=== PATIENT | male | born 1940 | race Caucasian/White ===

== ENCOUNTER → 2016-10-13 | Outpatient (CLI) | payer MEDICARE, OTHER ==
[2014-12-01 10:13] VITALS: BP 122/50
[~2016-10-13] MED LIST: AMLO5TAB2 PO; ASPI81TA2 PO; ATEN25TA PO; CLOP75TA PO; CLOP75TA27 PO; DOXA4TAB3 PO; GLIM1TAB2 PO; HYDR12.53 PO; IOHEXOL 350 MG/ML 100 ML VIAL. IV ONE; LOSA1TAB18 PO; METF500T4 PO; OXYC1TAB9 PO; SIMV40TA3 PO
[2016-10-13 08:22] LABS: GFR 72.3
--- NOTE | 2016-10-13 09:50 | RAD ---
CTA of the abdomen, pelvis and both lower extremities, 10/13/2016: History: Peripheral vascular disease Multidetector CT imaging was performed following an IV bolus injection of iodinated contrast material. Multiplanar reconstructions were performed as well as 3-D volume rendered reconstructions of the aorta and its major branches. There is extensive calcific plaquing of the abdominal aorta and its branches. There is calcific plaquing and mild narrowing at the celiac artery origin. There is high-grade stenosis at the superior mesenteric artery origin. There is a single right renal artery with approximately 60% diameter narrowing at its origin. There are 2 left renal arteries. There is approximately 50% diameter narrowing at the origin of the larger of these 2 vessels. The other left renal artery is small with moderate narrowing proximally. There is occlusion of the [place] distal abdominal aorta. A patent aortic Y graft is present with its inferior limbs inserting into the the external iliac arteries. The external iliac and common femoral arteries are widely patent. There are surgical clips at both groin levels. There is extensive calcific plaquing in the distal right superficial femoral and popliteal arteries. The dense plaque partially obscures the underlying lumen at the right adductor canal level. There appears to be severe stenosis at this level as well as moderate stenosis at multiple levels in the right popliteal artery. There is three-vessel runoff in the right lower leg. There are mild scattered calcific plaques. The dorsalis pedis artery is patent. There are also scattered dense atherosclerotic plaques in the left distal superficial femoral and popliteal arteries partially obscuring the lumen. There appears to be moderate stenosis at several levels. No definite high-grade stenosis is seen. There is three-vessel runoff in the left lower leg. There is moderate calcific narrowing and stenosis involving the proximal left posterior tibial artery at several levels. A patent dorsalis pedis artery is evident. Incidental CT findings include the presence of mild pleural thickening posteriorly in the left lower chest, likely due to scarring. There is a small left renal cyst. There is moderate diffuse bladder wall thickening. This is likely related to chronic bladder outlet obstruction, although cystitis could also give this appearance. IMPRESSION: 1. Severe aortic atherosclerosis with occlusion of the [place] distal aorta. 2. A patent distal aorta to external iliac Y graft is present. 3. High-grade stenosis at the origin of the superior mesenteric artery. 4. Severe calcific plaquing involving in the distal superficial femoral and popliteal arteries. These plaques partially obscure the underlying lumen, however, there appears to be severe stenosis at the adductor canal level on the right and moderate stenosis on the left. 5. Three-vessel runoff in both lower legs with mild scattered atherosclerotic plaques.
== END | disposition home or self-care (01) ==
LOC: CT 07:37
DX: I70.213 Atherosclerosis of native arteries of extremities with intermittent claudication, bilateral legs (principal)
CPT/HCPCS: 36415; 75635; 82565; 84520; Q9967

== ENCOUNTER 2017-09-20 11:17 | Inpatient (IN) | payer MEDICARE, OTHER ==
[2017-09-20] MEDS: IV DEXTROSE 5 %-0.45 % NACL 1,000 ML IV (12:30)
[2017-09-20] MEDS: IV NORMAL SALINE 1000ML BAG 1,000 ML IV (12:30)
[2017-09-20 12:47] LABS: POC GLUCOSE 208 mg/dL (70-99)
[2017-09-20] MEDS: hydroCHLOROthiazide 12.5 MG CAPSULE PO (13:00)
[2017-09-20] MEDS ORDERED: AMPICILLIN SODIUM IV Push 2 GM VIAL. IVP (13:00)
[2017-09-20] MEDS: LOSARTAN POTASSIUM 50 MG TABLET. PO (13:00)
[2017-09-20] MEDS: ASPIRIN ENTERIC COATED 325 MG TABLET.DR. PO (13:00)
[2017-09-20] MEDS: CLOPIDOGREL BISULFATE 75 MG TABLET PO (13:00)
[2017-09-20] MEDS: amLODIPine BESYLATE 5 MG TABLET PO (13:00)
[2017-09-20] MEDS: ATENOLOL 25 MG TABLET. PO (13:00)
[2017-09-20 13:14] LABS: BASO % 1 % (0-3); EOS % 1 % (0-3); HEMATOCRIT 27.8 % (39.0-53.0); HEMOGLOBIN 9.7 g/dL (13.0-17.5); LYMPH # 0.9 x10^3/uL (1.0-4.8); LYMPH % 26 % (24-48); MEAN CORPUSCULAR HEMOGLOBIN 31 pg (25-35); MEAN CORPUSCULAR HGB CONC 35 g/dL (31-37); MEAN CORPUSCULAR VOLUME 88 fL (79-100); MONO # 0.7 x10^3/uL (0.0-1.1); MONO % 21 % (0-9); NEUT # 1.8 x10^3uL (1.8-7.7); NEUT % 52 % (31-73); PLATELET COUNT 189 x10^3/uL (140-400); RED BLOOD COUNT 3.17 x10^6/uL (4.30-5.70); RED CELL DISTRIBUTION WIDTH 13.4 % (11.5-14.5); WHITE BLOOD COUNT 3.5 x10^3/uL (4.0-11.0)
[2017-09-20 13:15] LABS: ADD MAN DIFF? YES
[2017-09-20 13:19] LABS: ANION GAP 7 (6-14); BLOOD UREA NITROGEN 18 mg/dL (8-26); BUN/CREATININE RATIO 20 (6-20); CALCIUM 8.3 mg/dL (8.5-10.1); CARBON DIOXIDE 27 mmol/L (21-32); CHLORIDE 98 mmol/L (98-107); CREATININE 0.9 mg/dL (0.7-1.3); GFR 81.4; GLUCOSE 209 mg/dL (70-99); POTASSIUM 3.1 mmol/L (3.5-5.1); SODIUM 132 mmol/L (136-145)
[2017-09-20 13:25] LABS: ALBUMIN/GLOBULIN RATIO 0.9 (1.0-1.7); ALK PHOS 102 U/L (46-116); ALT (SGPT) 32 U/L (16-63); AST (SGOT) 23 U/L (15-37); TOTAL BILIRUBIN 0.3 mg/dL (0.2-1.0); TOTAL PROTEIN 6.5 g/dL (6.4-8.2)
[2017-09-20 13:28] LABS: LACTIC ACID 2.2 mmol/L (0.4-2.0)
[2017-09-20] MEDS ORDERED: oxyCODONE/APAP 10/325 1 TAB TABLET PO ×2 (14:00)
[2017-09-20 14:13] LABS: % ATYL 1 % (0-0); % BANDS 14 % (0-9); % LYMPHS 19 % (24-48); % METAS 2 % (0-0); % MONOS 14 % (0-10); % SEGS 50 % (35-66); PLT ESTIMATE ADEQUATE (ADEQUATE); POLYCHROMASIA SLIGHT
[2017-09-20] MEDS ORDERED: VANCOMYCIN 1 GM in IV DEXTROSE 5% 250 ML IV (14:30)
[2017-09-20] MEDS: AMPICILLIN/SULBACTAM IV Push 3 GM VIAL. IVP ×2 (15:00→21:17)
[2017-09-20] MEDS: VANCOMYCIN 2 GM in IV 1/2 NORMAL SALINE 500 ML IV (16:07)
[2017-09-20] MEDS: PANTOPRAZOLE 40 MG TABLET.DR. PO (16:54)
[2017-09-20] MEDS: oxyCODONE/APAP 10/325 1 TAB TABLET PO ×2 (16:55→23:20)
[2017-09-20 16:57] LABS: POC GLUCOSE 150 mg/dL (70-99)
[2017-09-20] MEDS: VANCOMYCIN PER PHARMACY MC (17:55)
[2017-09-20] MEDS ORDERED: AMPICILLIN SODIUM 2 GM in IV NORMAL SALINE 100ML 100 ML IV (18:00)
[2017-09-20] MEDS ORDERED: AMPICILLIN/SULBACTAM 3 GM in IV NORMAL SALINE 100ML 100 ML IV (18:00)
[2017-09-20 21:02] LABS: POC GLUCOSE 215 mg/dL (70-99)
[2017-09-20] MEDS: FAMOTIDINE 20 MG TABLET. PO (21:16)
[2017-09-20] MEDS: ATORVASTATIN CALCIUM 20 MG TABLET PO (21:16)
[2017-09-20] MEDS: LACTOBACILLUS RHAMNOSUS GG 1 CAPSULE. PO (21:16)
[2017-09-21] MEDS: AMPICILLIN/SULBACTAM IV Push 3 GM VIAL. IVP ×4 (00:16→17:33)
[2017-09-21] MEDS: VANCOMYCIN 1 GM in IV DEXTROSE 5 %-0.2 % NACL 250 ML IV ×2 (04:01→17:00)
[2017-09-21] MEDS: oxyCODONE/APAP 10/325 1 TAB TABLET PO ×4 (04:01→21:42)
[2017-09-21] MEDS: IV DEXTROSE 5 %-0.45 % NACL 1,000 ML IV (05:48)
[2017-09-21 07:16] LABS: POC GLUCOSE 170 mg/dL (70-99)
[2017-09-21] MEDS: LOSARTAN POTASSIUM 50 MG TABLET. PO (08:05)
[2017-09-21] MEDS: LACTOBACILLUS RHAMNOSUS GG 1 CAPSULE. PO ×2 (08:05→21:42)
[2017-09-21] MEDS: hydroCHLOROthiazide 12.5 MG CAPSULE PO (08:05)
[2017-09-21] MEDS: PANTOPRAZOLE 40 MG TABLET.DR. PO ×2 (08:06→17:00)
[2017-09-21] MEDS: ASPIRIN ENTERIC COATED 325 MG TABLET.DR. PO (08:06)
[2017-09-21] MEDS: FAMOTIDINE 20 MG TABLET. PO ×2 (08:06→21:42)
[2017-09-21] MEDS: amLODIPine BESYLATE 5 MG TABLET PO (08:06)
[2017-09-21] MEDS: CLOPIDOGREL BISULFATE 75 MG TABLET PO (08:06)
[2017-09-21] MEDS: ATENOLOL 25 MG TABLET. PO (08:10)
[2017-09-21 09:26] LABS: ADD MAN DIFF? NO
[2017-09-21 09:30] LABS: BASO % 1 % (0-3); EOS # 0.2 x10^3/uL (0.0-0.7); EOS % 4 % (0-3); HEMOGLOBIN 9.8 g/dL (13.0-17.5); LYMPH # 1.1 x10^3/uL (1.0-4.8); LYMPH % 29 % (24-48); MEAN CORPUSCULAR HEMOGLOBIN 30 pg (25-35); MEAN CORPUSCULAR HGB CONC 34 g/dL (31-37); MEAN CORPUSCULAR VOLUME 89 fL (79-100); MONO # 0.6 x10^3/uL (0.0-1.1); MONO % 16 % (0-9); NEUT % 50 % (31-73); PLATELET COUNT 204 x10^3/uL (140-400); RED BLOOD COUNT 3.27 x10^6/uL (4.30-5.70); RED CELL DISTRIBUTION WIDTH 13.7 % (11.5-14.5); WHITE BLOOD COUNT 3.9 x10^3/uL (4.0-11.0)
[2017-09-21 09:36] LABS: POTASSIUM 4.3 mmol/L (3.5-5.1)
[2017-09-21 09:48] LABS: LACTIC ACID 2.4 mmol/L (0.4-2.0)
[2017-09-21] MEDS: POTASSIUM CL 30MEQ D5-0.45NACL 1,000 ML IV ×2 (10:47→21:46)
[2017-09-21] MEDS: ENOXAPARIN 40 MG/0.4 ML SYRINGE. SQ (10:47)
[2017-09-21 11:08] LABS: POC GLUCOSE 160 mg/dL (70-99)
[2017-09-21] MEDS: VANCOMYCIN PER PHARMACY MC (13:47)
[2017-09-21] MEDS ORDERED: VANCOMYCIN 1.25 GM in IV DEXTROSE 5 %-0.2 % NACL 250 ML IV (16:00)
[2017-09-21 16:31] LABS: POC GLUCOSE 191 mg/dL (70-99)
[2017-09-21 20:56] LABS: POC GLUCOSE 199 mg/dL (70-99)
[2017-09-21] MEDS: ATORVASTATIN CALCIUM 20 MG TABLET PO (21:42)
[2017-09-21] MEDS: TEMAZEPAM 15 MG CAPSULE PO (21:42)
[2017-09-22] MEDS: AMPICILLIN/SULBACTAM IV Push 3 GM VIAL. IVP ×4 (00:17→19:40)
[2017-09-22 03:15] LABS: VANC TR 12.2 mcg/mL (10.0-20.0)
[2017-09-22] MEDS: VANCOMYCIN 1 GM in IV DEXTROSE 5 %-0.2 % NACL 250 ML IV ×2 (04:43→16:43)
[2017-09-22] MEDS: VANCOMYCIN PER PHARMACY MC ×2 (05:27→14:24)
[2017-09-22] MEDS: PANTOPRAZOLE 40 MG TABLET.DR. PO ×2 (05:49→16:41)
[2017-09-22] MEDS: oxyCODONE/APAP 10/325 1 TAB TABLET PO ×3 (05:56→19:40)
[2017-09-22 07:36] LABS: POC GLUCOSE 142 mg/dL (70-99)
[2017-09-22] MEDS: CLOPIDOGREL BISULFATE 75 MG TABLET PO (08:42)
[2017-09-22] MEDS: ASPIRIN ENTERIC COATED 325 MG TABLET.DR. PO (08:42)
[2017-09-22] MEDS: ATENOLOL 25 MG TABLET. PO (08:42)
[2017-09-22] MEDS: LACTOBACILLUS RHAMNOSUS GG 1 CAPSULE. PO ×2 (08:42→22:14)
[2017-09-22] MEDS: amLODIPine BESYLATE 5 MG TABLET PO (08:43)
[2017-09-22] MEDS: FAMOTIDINE 20 MG TABLET. PO ×2 (08:43→22:13)
[2017-09-22] MEDS: hydroCHLOROthiazide 12.5 MG CAPSULE PO (08:43)
[2017-09-22] MEDS: LOSARTAN POTASSIUM 50 MG TABLET. PO (08:44)
[2017-09-22] MEDS: ENOXAPARIN 40 MG/0.4 ML SYRINGE. SQ (08:47)
[2017-09-22 11:36] LABS: POC GLUCOSE 178 mg/dL (70-99)
[2017-09-22] MEDS: POTASSIUM CL 30MEQ D5-0.45NACL 1,000 ML IV ×2 (11:40→22:15)
[2017-09-22 16:06] LABS: POC GLUCOSE 148 mg/dL (70-99)
[2017-09-22 21:16] LABS: POC GLUCOSE 178 mg/dL (70-99)
[2017-09-22] MEDS: TEMAZEPAM 15 MG CAPSULE PO (22:13)
[2017-09-22] MEDS: ATORVASTATIN CALCIUM 20 MG TABLET PO (22:14)
[2017-09-23] MEDS: AMPICILLIN/SULBACTAM IV Push 3 GM VIAL. IVP ×3 (00:23→12:54)
[2017-09-23] MEDS: VANCOMYCIN 1 GM in IV DEXTROSE 5 %-0.2 % NACL 250 ML IV ×2 (04:39→17:13)
[2017-09-23] MEDS: oxyCODONE/APAP 10/325 1 TAB TABLET PO ×3 (04:39→18:27)
[2017-09-23 05:32] LABS: ADD MAN DIFF? NO
[2017-09-23 05:43] LABS: BASO # 0.1 x10^3/uL (0.0-0.2); BASO % 1 % (0-3); EOS # 0.4 x10^3/uL (0.0-0.7); EOS % 8 % (0-3); HEMATOCRIT 28.5 % (39.0-53.0); HEMOGLOBIN 9.7 g/dL (13.0-17.5); LYMPH # 1.8 x10^3/uL (1.0-4.8); LYMPH % 33 % (24-48); MEAN CORPUSCULAR HEMOGLOBIN 30 pg (25-35); MEAN CORPUSCULAR HGB CONC 34 g/dL (31-37); MEAN CORPUSCULAR VOLUME 87 fL (79-100); MONO # 0.6 x10^3/uL (0.0-1.1); MONO % 11 % (0-9); NEUT # 2.6 x10^3uL (1.8-7.7); NEUT % 47 % (31-73); PLATELET COUNT 269 x10^3/uL (140-400); RED BLOOD COUNT 3.27 x10^6/uL (4.30-5.70); RED CELL DISTRIBUTION WIDTH 13.2 % (11.5-14.5); WHITE BLOOD COUNT 5.5 x10^3/uL (4.0-11.0)
[2017-09-23 06:02] LABS: ALBUMIN 2.8 g/dL (3.4-5.0); ALBUMIN/GLOBULIN RATIO 0.7 (1.0-1.7); ALK PHOS 90 U/L (46-116); ALT (SGPT) 35 U/L (16-63); ANION GAP 10 (6-14); AST (SGOT) 20 U/L (15-37); BLOOD UREA NITROGEN 8 mg/dL (8-26); BUN/CREATININE RATIO 10 (6-20); CALCIUM 8.6 mg/dL (8.5-10.1); CARBON DIOXIDE 28 mmol/L (21-32); CHLORIDE 104 mmol/L (98-107); CREATININE 0.8 mg/dL (0.7-1.3); GFR 93.3; GLUCOSE 135 mg/dL (70-99); POTASSIUM 3.5 mmol/L (3.5-5.1); SODIUM 142 mmol/L (136-145); TOTAL BILIRUBIN 0.4 mg/dL (0.2-1.0); TOTAL PROTEIN 6.7 g/dL (6.4-8.2)
[2017-09-23 07:47] LABS: POC GLUCOSE 135 mg/dL (70-99)
[2017-09-23] MEDS: LOSARTAN POTASSIUM 50 MG TABLET. PO (08:31)
[2017-09-23] MEDS: CLOPIDOGREL BISULFATE 75 MG TABLET PO (08:32)
[2017-09-23] MEDS: LACTOBACILLUS RHAMNOSUS GG 1 CAPSULE. PO ×2 (08:32→21:06)
[2017-09-23] MEDS: amLODIPine BESYLATE 5 MG TABLET PO (08:32)
[2017-09-23] MEDS: hydroCHLOROthiazide 12.5 MG CAPSULE PO (08:32)
[2017-09-23] MEDS: FAMOTIDINE 20 MG TABLET. PO ×2 (08:33→21:06)
[2017-09-23] MEDS: ASPIRIN ENTERIC COATED 325 MG TABLET.DR. PO (08:33)
[2017-09-23] MEDS: ATENOLOL 25 MG TABLET. PO (08:33)
[2017-09-23] MEDS: PANTOPRAZOLE 40 MG TABLET.DR. PO ×2 (08:33→17:15)
[2017-09-23] MEDS: ENOXAPARIN 40 MG/0.4 ML SYRINGE. SQ (08:41)
[2017-09-23 11:22] LABS: POC GLUCOSE 108 mg/dL (70-99)
[2017-09-23] MEDS: VANCOMYCIN PER PHARMACY MC (14:59)
[2017-09-23 16:30] LABS: POC GLUCOSE 171 mg/dL (70-99)
[2017-09-23] MEDS: POTASSIUM CL 30MEQ D5-0.45NACL 1,000 ML IV ×2 (17:14→23:27)
[2017-09-23] MEDS: AMPICILLIN/SULBACTAM 3 GM in IV NORMAL SALINE 100ML 100 ML IV ×2 (18:29→23:25)
[2017-09-23] MEDS: TEMAZEPAM 15 MG CAPSULE PO (21:06)
[2017-09-23] MEDS: ATORVASTATIN CALCIUM 20 MG TABLET PO (21:06)
[2017-09-23 21:33] LABS: POC GLUCOSE 113 mg/dL (70-99)
[2017-09-24] MEDS: VANCOMYCIN 1 GM in IV DEXTROSE 5 %-0.2 % NACL 250 ML IV (04:34)
[2017-09-24] MEDS: oxyCODONE/APAP 10/325 1 TAB TABLET PO ×2 (04:34→11:25)
[2017-09-24] MEDS: AMPICILLIN/SULBACTAM 3 GM in IV NORMAL SALINE 100ML 100 ML IV (06:00)
[2017-09-24 07:37] LABS: POC GLUCOSE 111 mg/dL (70-99)
[2017-09-24] MEDS: PANTOPRAZOLE 40 MG TABLET.DR. PO (08:36)
[2017-09-24] MEDS: LACTOBACILLUS RHAMNOSUS GG 1 CAPSULE. PO (08:36)
[2017-09-24] MEDS: hydroCHLOROthiazide 12.5 MG CAPSULE PO (08:37)
[2017-09-24] MEDS: ASPIRIN ENTERIC COATED 325 MG TABLET.DR. PO (08:37)
[2017-09-24] MEDS: LOSARTAN POTASSIUM 50 MG TABLET. PO (08:37)
[2017-09-24] MEDS: FAMOTIDINE 20 MG TABLET. PO (08:37)
[2017-09-24] MEDS: ATENOLOL 25 MG TABLET. PO (08:38)
[2017-09-24] MEDS: amLODIPine BESYLATE 5 MG TABLET PO (08:38)
[2017-09-24] MEDS: ENOXAPARIN 40 MG/0.4 ML SYRINGE. SQ (08:39)
[2017-09-24] MEDS: VANCOMYCIN PER PHARMACY MC (11:13)
[2017-09-24 11:15] LABS: POC GLUCOSE 83 mg/dL (70-99)
[2017-09-25] MEDS ORDERED: AMPICILLIN/SULBACTAM IV Push 3 GM VIAL. IVP
== END 2017-09-24 12:36 | disposition home or self-care (01) | DRG 872 ==
LOC: 4 NORTH 11:17
PROVIDERS: Family Medicine
DX: A41.9 Sepsis, unspecified organism (principal); I76 Septic arterial embolism; E11.51 Type 2 diabetes mellitus with diabetic peripheral angiopathy without gangrene; L02.214 Cutaneous abscess of groin; L03.032 Cellulitis of left toe; G89.29 Other chronic pain; I10 Essential (primary) hypertension; I25.10 Atherosclerotic heart disease of native coronary artery without angina pectoris; Z87.891 Personal history of nicotine dependence; Z95.1 Presence of aortocoronary bypass graft; S90.425A Blister (nonthermal), left lesser toe(s), initial encounter; X58.XXXA Exposure to other specified factors, initial encounter; Y93.89 Activity, other specified; Y92.89 Other specified places as the place of occurrence of the external cause; Y99.8 Other external cause status
CPT/HCPCS: 36415; 73660; 80053; 80202; 82962; 83605; 84132; 85007; 85025; 87040; 93306; J0295; J1650; J3370; J7030

== ENCOUNTER → 2017-09-28 | Day surgery (SDC) | payer MEDICARE, OTHER ==
[~2017-09-28] MED LIST changes: -AMLO5TAB2 PO; -ASPI81TA2 PO; -ATEN25TA PO; -CLOP75TA PO; -CLOP75TA27 PO; -DOXA4TAB3 PO; -GLIM1TAB2 PO; +GLYCOPYRROLATE 1 MG/5 ML VIAL.; -HYDR12.53 PO; -IOHEXOL 350 MG/ML 100 ML VIAL. IV ONE; +LIDOCAINE 1% PF 2 ML VIAL. ID; +LIDOCAINE 2% PF Vial for OR 5 ML VIAL.; +LIDOCAINE 4% KIT 4 ML SOLUTION. TP; -LOSA1TAB18 PO; -METF500T4 PO; +MORPHINE SULFATE 2 MG/ML DISP.SYRIN. IV; +NEOSTIGMINE METHYLSULFATE 5 MG/5 ML SYRINGE.; +ONDANSETRON PF 4 MG/2 ML VIAL. IV; -OXYC1TAB9 PO; +PROCHLORPERAZINE 10 MG/2 ML VIAL. IV; +PROPOFOL 20 ML IV; +ROCURONIUM 50 MG/5 ML VIAL.; +SEVOFLURANE 31 TO 60 MINUTES. IH; -SIMV40TA3 PO; +SUCCINYLCHOLINE 200 MG/10 ML VIAL.; +ePHEDrine PF IN SALINE 50 MG/5 ML DISP.SYRIN IV; +fentaNYL PF VIAL 100 MCG/2 ML VIAL; +fentaNYL PF VIAL 100 MCG/2 ML VIAL IV
[2017-09-28] MEDS: IV RINGERS,LACTATED 1000ML 1,000 ML IV (07:17)
[2017-09-28] MEDS: EPINEPHrine VIAL 30 MG/30 ML VIAL (08:04)
[2017-09-28 09:26] LABS: POC GLUCOSE 136 mg/dL (70-99)
[2017-10-01 05:51] LABS: POC GLUCOSE 104 mg/dL (70-99)
== END | disposition home or self-care (01) ==
LOC: SURG 06:32
DX: J38.3 Other diseases of vocal cords (principal); E11.9 Type 2 diabetes mellitus without complications; Z79.84 Long term (current) use of oral hypoglycemic drugs
CPT/HCPCS: 31541; 82962; A7015; J0171; J0330; J0690; J2704; J2710; J3010; J3490

== ENCOUNTER → 2017-11-01 | Day surgery (SDC) | payer MEDICARE, OTHER ==
[~2017-11-01] MED LIST changes: -GLYCOPYRROLATE 1 MG/5 ML VIAL.; +IV RINGERS,LACTATED 1000ML 1,000 ML IV; -LIDOCAINE 1% PF 2 ML VIAL. ID; -LIDOCAINE 2% PF Vial for OR 5 ML VIAL.; -LIDOCAINE 4% KIT 4 ML SOLUTION. TP; -MORPHINE SULFATE 2 MG/ML DISP.SYRIN. IV; -NEOSTIGMINE METHYLSULFATE 5 MG/5 ML SYRINGE.; -ONDANSETRON PF 4 MG/2 ML VIAL. IV; -PROCHLORPERAZINE 10 MG/2 ML VIAL. IV; -PROPOFOL 20 ML IV; -ROCURONIUM 50 MG/5 ML VIAL.; -SEVOFLURANE 31 TO 60 MINUTES. IH; -SUCCINYLCHOLINE 200 MG/10 ML VIAL.; -ePHEDrine PF IN SALINE 50 MG/5 ML DISP.SYRIN IV; -fentaNYL PF VIAL 100 MCG/2 ML VIAL; -fentaNYL PF VIAL 100 MCG/2 ML VIAL IV
== END | disposition home or self-care (01) ==
LOC: SURG 08:10
DX: K21.0 Gastro-esophageal reflux disease with esophagitis (principal); K25.3 Acute gastric ulcer without hemorrhage or perforation; K31.89 Other diseases of stomach and duodenum; K29.50 Unspecified chronic gastritis without bleeding; E11.9 Type 2 diabetes mellitus without complications; M19.90 Unspecified osteoarthritis, unspecified site; E78.00 Pure hypercholesterolemia, unspecified; Z85.828 Personal history of other malignant neoplasm of skin; Z82.49 Family history of ischemic heart disease and other diseases of the circulatory system; Z79.899 Other long term (current) drug therapy; Z98.890 Other specified postprocedural states; I25.10 Atherosclerotic heart disease of native coronary artery without angina pectoris; Z95.4 Presence of other heart-valve replacement; Z95.5 Presence of coronary angioplasty implant and graft; I10 Essential (primary) hypertension; J44.9 Chronic obstructive pulmonary disease, unspecified; N40.0 Benign prostatic hyperplasia without lower urinary tract symptoms
CPT/HCPCS: 43239; 88305; 88341; 88342; J2704

== ENCOUNTER → 2019-07-15 | Outpatient (CLI) | payer MEDICARE, OTHER ==
[2017-11-01 11:04] VITALS: BP 164/69
[~2019-07-15] MED LIST changes: +AMLO5TAB10 PO; +AMOX1TAB61 PO; +ASPI-630 PO; +ASPI325T11 PO; +ATEN25TA PO; +CLOP75TA PO; +CLOP75TA57 PO; +DOXA4TAB3 PO; +FURO40TA4 PO; +GLIM1TAB7 PO; +HYDR12.575 PO; -IV RINGERS,LACTATED 1000ML 1,000 ML IV; +LOSA1TAB25 PO; +METF10007 PO; +METF500T16 PO; +OXYC-411 PO; +PANT20TA2 PO; +POTA20TA4 PO; +RANI150C PO; +SIMV40TA18 PO
[2019-07-15 14:20] LABS: BASO % 1 % (0-3); EOS # 0.2 x10^3/uL (0.0-0.7); EOS % 4 % (0-3); HEMATOCRIT 34.3 % (39.0-53.0); HEMOGLOBIN 11.7 g/dL (13.0-17.5); LYMPH # 2.6 x10^3/uL (1.0-4.8); LYMPH % 44 % (24-48); MEAN CORPUSCULAR HEMOGLOBIN 30 pg (25-35); MEAN CORPUSCULAR HGB CONC 34 g/dL (31-37); MEAN CORPUSCULAR VOLUME 88 fL (79-100); MONO # 0.5 x10^3/uL (0.0-1.1); MONO % 9 % (0-9); NEUT # 2.5 x10^3/uL (1.8-7.7); NEUT % 42 % (31-73); PLATELET COUNT 230 x10^3/uL (140-400); RED CELL DISTRIBUTION WIDTH 12.7 % (11.5-14.5); WHITE BLOOD COUNT 5.8 x10^3/uL (4.0-11.0)
[2019-07-15 14:35] LABS: ALBUMIN 3.6 g/dL (3.4-5.0); CALCIUM 8.9 mg/dL (8.5-10.1); CREATININE 1.1 mg/dL (0.7-1.3); GFR 64.2; POTASSIUM 3.8 mmol/L (3.5-5.1); TOTAL BILIRUBIN 0.3 mg/dL (0.2-1.0); TOTAL PROTEIN 7.3 g/dL (6.4-8.2)
--- NOTE | 2019-07-15 14:54 | EKG ---
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
== END | disposition home or self-care (01) ==
LOC: SURGPAT 13:44
PROVIDERS: ATTEND Neurological Surgery
DX: Z01.818 Encounter for other preprocedural examination (principal); M48.062 Spinal stenosis, lumbar region with neurogenic claudication
CPT/HCPCS: 36415; 80053; 85025; 87641; 93005

== ENCOUNTER 2019-07-24 07:05 | Day surgery (SDC) | payer MEDICARE, OTHER ==
--- NOTE | 2019-07-23 14:28 | HP ---
ADMIT DATE: 07/24/2019 PREOPERATIVE HISTORY AND PHYSICAL DATE OF SURGERY: 07/24/2019. HISTORY OF PRESENT ILLNESS: The patient is a pleasant 79-year-old who has difficulty with low back pain. The pain radiates to both of his legs. He also notices problems with neck pain and pain in the left shoulder. His problem began about 1 year ago. He rates his pain as a 4-5/10. The mornings are worse for his neck pain. Walking or activity increases his lower back pain. He is taking Percocet. He has had epidural steroid injections for this without help. He has had previous surgery of lumbar spine and then I obtained a lumbar CT scan to evaluate him more fully. PAST MEDICAL HISTORY: Artificial heart valve, heart murmur, hypertension. PAST SURGICAL HISTORY: A lumbar surgery in 2007, right femoral artery in 2013, a vocal cord surgery in 2017. FAMILY HISTORY: None documented. SOCIAL HISTORY: Retired. Drinks coffee. ALLERGIES: No known drug allergies. CURRENT MEDICATIONS: Percocet, ranitidine, Flonase, furosemide, aspirin, doxazosin, atenolol, losartan, simvastatin, metformin, doxazosin, Plavix. REVIEW OF SYSTEMS: A 12-point review of systems was obtained and is noncontributory except that mentioned above. PHYSICAL EXAMINATION: NEUROSURGERY EXAMINATION: GENERAL APPEARANCE: Alert, pleasant, no acute distress. HEAD: Normocephalic and atraumatic. SKIN: Warm and dry. MUSCULOSKELETAL: Cervical and lumbar paraspinal muscle bulk is normal, restricted range of motion of the cervical and lumbar spine, cwyu-gr-eozcaism tenderness of the lower lumbar spine with palpation, normal range of motion of the lower extremities bilaterally and upper extremities bilaterally. EXTREMITIES: No clubbing, cyanosis or edema. NEUROLOGIC: Alert and oriented x 3, normal recent and remote memory. Strength 5/5 in bilateral lower extremities, sensory was intact to light touch in bilateral lower extremities. Reflexes are present and symmetric in lower extremities bilaterally, negative straight leg raising bilaterally, normal gait. IMAGING: I reviewed his lumbar MRI scan. He has had a laminectomy, which extends from L3-S1. There is significant lumbar stenosis at L2-L3. I reviewed a cervical MRI scan; there is cervical stenosis that is mild. ASSESSMENT/ PLAN: At this point, his primary problem is leg pain bilaterally with ambulation as well as back pain. I felt that a laminectomy at L2-L3, which is above the previous surgery, could benefit in relieving the stenosis. I explained that the surgery would most likely be helpful for his leg discomfort and for his back problems. He understands. He would like to go ahead with further surgery. I discussed the risks and technique and expected postoperative course. He understands. We will make the arrangements. NELIA CORNEJO MD DR: JANICE/blanca JOB#: [id number] / [id number] MIAN
[~2019-07-24 07:05] MED LIST changes: +BACITRACIN 50,000 UNIT in IV NORMAL SALINE 1000ML BAG 1,000 ML IRR ONE; +HYDROmorphone 2 MG/ML VIAL IV PRN; +IV RINGERS,LACTATED 1000ML 1,000 ML IV SCH; +MORPHINE SULFATE 2 MG/ML VIAL. IV PRN; +ONDANSETRON PF 4 MG/2 ML VIAL. IV PRN; +PROCHLORPERAZINE 10 MG/2 ML VIAL. IV PRN; +fentaNYL PF VIAL 100 MCG/2 ML VIAL IV PRN
[2019-07-24] MEDS ORDERED: MULT-245 PO (07:31)
[2019-07-24] MEDS ORDERED: INSULIN LISPRO 100 UNIT/ML 3ML VIAL for OP,RR ONLY. SQ PRN (07:45)
[2019-07-24] MEDS ORDERED: BUPIVACAINE-EPI 0.5%-1:200000 MPF 30 ML VIAL. ONE (07:47)
[2019-07-24] MEDS ORDERED: KETOROLAC 60 MG/2 ML VIAL. ONE (07:47)
[2019-07-24] MEDS ORDERED: THROMBIN TOPICAL 20,000 UNIT SPRAY.SYRN KIT TP ONE (07:47)
[2019-07-24] MEDS ORDERED: GELATIN SPONGE SIZE 100. ONE (07:47)
[2019-07-24] MEDS ORDERED: ROCURONIUM 50 MG/5 ML VIAL. ONE ×2 (07:58→08:23)
[2019-07-24] MEDS ORDERED: fentaNYL PF VIAL 100 MCG/2 ML VIAL ONE ×3 (07:58→13:56)
[2019-07-24] MEDS ORDERED: DEXAMETHASONE SOD PHOS 4 MG/ML VIAL ONE (07:58)
[2019-07-24] MEDS ORDERED: PROPOFOL 20 ML IV ONE ×2 (07:58→08:23)
[2019-07-24] MEDS ORDERED: ceFAZolin 2GM PREMIX 2 GM/50 ML BAG IV ONE (08:00)
[2019-07-24] MEDS ORDERED: ONDANSETRON PF 4 MG/2 ML VIAL. ONE ×2 (08:00→08:23)
[2019-07-24] MEDS ORDERED: PROPOFOL 50 ML IV ONE ×2 (08:23→11:31)
[2019-07-24] MEDS ORDERED: DEXAMETHASONE SOD PHOS 20 MG/5 ML VIAL. ONE (08:23)
[2019-07-24] MEDS ORDERED: REMIFENTANIL 2 MG VIAL. IV ONE (08:23)
[2019-07-24] MEDS ORDERED: LIDOCAINE 2% PF 5 ML VIAL. ONE (08:23)
[2019-07-24] MEDS ORDERED: ePHEDrine PF IN SALINE 50 MG/10 ML SYRINGE. IV ONE (10:45)
[2019-07-24] MEDS ORDERED: GLYCOPYRROLATE 1 MG/5 ML VIAL. ONE (10:46)
[2019-07-24] MEDS ORDERED: PHENYLEPHRINE 10 MG/ML VIAL. ONE (11:36)
[2019-07-24] MEDS ORDERED: NEOSTIGMINE METHYLSULFATE 5 MG/5 ML SYRINGE. ONE (12:07)
[2019-07-24] MEDS ORDERED: DESFLURANE > 120 MINUTES IH ONE (12:22)
[2019-07-24] MEDS ORDERED: DOCU-109 PO (12:25)
--- NOTE | 2019-07-24 12:32 | DISCH ---
DISCHARGE INSTRUCTIONS Condition on Discharge Condition on Discharge: Stable Activity After Discharge Activity Instructions for Disc: Activity as tolerated, Avoid exertion Other activity instructions: no driving for a week Bathing Instructions: Shower-keep dressing dry, No Tub Bath until see Lifting Instructions after Dis: No heavy lifting, No pulling or pushing, Do not lift >10 pounds Driving Instructions after Dis: Do not drive Weight Bearing Status after Di: As tolerated Diet after Discharge Diet after Discharge: Cardiac Diet Texture: Regular Liquid Texture: Thin Liquid Swallowing Supervision: None needed Wound Incision Care Wound/Incision Care: Ice to area for comfort Other wound/incision instructi: may remove dressing in 48 hours if dry then may shower, no soaking Contacting the DRDiane after DC Call your doctor for: Concerns you may have Follow-Up Follow up with: Dr. Cornejo's nurse in 2 weeks [phone] NELIA CORNEJO MD Jul 24, 2019 12:32
[2019-07-24] MEDS ORDERED: OXYC-325 PO (13:19)
[2019-07-24] MEDS ORDERED: oxyCODONE/APAP 5/325 1 TAB TABLET PO ONE ×2 (13:30)
[2019-07-24 14:34] VITALS: BP 176/57
--- NOTE | 2019-07-25 15:07 | PATHOLOGY ---
[facility] Accession Number: [id number] . 01 Material submitted: . vertebral column - LUMBAR DECOMPRESSION . 01 Clinical history: . Lumbar stenosis with neurogenic claudication . 02 Diagnosis: Segments of fibrocartilaginous tissue and bone, lumbar decompression: - Degenerative changes of fibrocartilaginous tissue. . (JPM:mm; 07/25/2019) [facility] 07/25/2019 1223 Local . 02 Comment: There is no evidence of an acute inflammatory process or malignancy. . (JPM:mm; 07/25/2019) . 02 Electronically signed: . Jabier Mai MD, Pathologist NPI- [id number] . 01 Gross description: . The specimen is received in formalin, labeled "[place], lumbar decompression". Received are multiple segments of pale bautista to pink-bautista fibrous, gritty tissue admixed with minute fragments of possible bone measuring 3.8 x 3.0 x 0.6 cm in aggregate dimensions. The specimen is submitted representatively in cassette A1, following light decalcification. ([facility]; 07/24/2019) QAC/QAC 07/24/2019 1816 Local . 02 Pathologist provided ICD-10: M99.73 . 02 CPT . 564190, [id number] Specimen Comment: A courtesy copy of this report has been sent to [phone], [phone] Specimen Comment: [id number] Specimen Comment: Report sent to and Performed at: 01 [facility] [address], [place], [place] [id number] MD Nba Sanders MD Phone: [phone] Performed at: 02 [facility] [address] [place], [place] [id number] MD Jabier Mai MD Phone: [phone]
--- NOTE | 2019-07-25 21:59 | OP ---
DATE OF SURGERY: 07/24/2019 PREOPERATIVE DIAGNOSIS: Lumbar spinal stenosis, L2-L3. POSTOPERATIVE DIAGNOSIS: Lumbar spinal stenosis, L2-L3. OPERATION PERFORMED: Bilateral hemilaminotomies with decompression of dura and nerve root, L2-L3. The operation was done with EMG monitoring, SSEP monitoring, fluoroscopy, and microscopic dissection. SURGEON: Huy Cornejo M.D. SPRING [employer]VAGE WORKER: CAM Good assisted with the surgery. She assisted with the exposure, the microdecompression as well as the closure. OPERATIVE INDICATIONS: The patient is a pleasant 79-year-old who in the past has undergone surgery including a laminectomy from L3 inferiorly. He has now developed problems with lumbar spinal stenosis at L2-L3 and neurogenic claudication pattern with both legs affected with standing and activity and improved with rest. On imaging studies, there was diffuse lumbar spinal stenosis seen and I recommended lumbar microsurgery. I spoke about the surgery, the risks and technique, and expected postoperative course and he wished to go ahead. DESCRIPTION OF PROCEDURE: Following general endotracheal anesthesia, the patient was positioned prone on the Chauncey table. Lumbar region prepped and draped in standard fashion. DOC hose and AV impulse boots were applied for DVT prophylaxis. A microscope was draped. Fluoroscopy was draped and brought into field. Monitoring was established. Ancef 2 grams was given less than 1 hour prior to initiation of the surgery. Using fluoroscopic guidance, a midline incision was made at L2-L3, which included part of the superior portion of his previous incision from the past. I dissected down his skin and subcutaneous tissue, reflected the paraspinal muscles, placed self-retaining retractor. I brought in the microscope and the remainder of surgery was done with the microscope using microscopic technique beginning on the left side. I burred down a very generous hemilaminotomy and then I worked and peeled away the thickened ligamentum flavum fully decompressing the dura and the exiting root. I did perform a partial foraminotomy. I used bone wax for any bone bleeding as well as bipolar cautery where necessary. I worked to the midline and I sucked away any epidural fat compressing from the posterior midline. I then went to the right side and performed the identical operation on the right side and fully decompressed L2-L3. I explored carefully, the disc was firm and not bulging and no discectomy was warranted. I irrigated copiously with antibiotic solution, removed the retractor, obtained hemostasis in the muscle and I closed the wound in layers with absorbable suture and skin was closed with 4-0 subcuticular stitch. The operation went very well. The patient was taken to recovery room in excellent condition with normal strength in his lower extremities. I was quite pleased with the surgery. HUY CORNEJO MD DR: JANICE/blanca JOB#: [id number] / [id number] MIAN
== END 2019-07-24 14:55 | disposition home or self-care (01) ==
LOC: SURG 07:05
PROVIDERS: ATTEND Neurological Surgery
DX: M48.061 Spinal stenosis, lumbar region without neurogenic claudication (principal); I10 Essential (primary) hypertension; E78.00 Pure hypercholesterolemia, unspecified; I25.10 Atherosclerotic heart disease of native coronary artery without angina pectoris; K21.9 Gastro-esophageal reflux disease without esophagitis; E11.40 Type 2 diabetes mellitus with diabetic neuropathy, unspecified; Z98.890 Other specified postprocedural states; Z79.899 Other long term (current) drug therapy; Z87.891 Personal history of nicotine dependence; Z86.010 Personal history of colon polyps; Z87.39 Personal history of other diseases of the musculoskeletal system and connective tissue; Z85.828 Personal history of other malignant neoplasm of skin; Z79.84 Long term (current) use of oral hypoglycemic drugs
CPT/HCPCS: 63047; 82962; 97161; A7015; J0171; J0696; J1100; J1885; J2001; J2405; J2704; J2710; J3010; J3490; J7030; 76000

== ENCOUNTER → 2020-08-27 | Outpatient (CLI) | payer MEDICARE, OTHER ==
[~2020-08-27] MED LIST changes: +AMLO-186 PO; -AMLO5TAB10 PO; -BACITRACIN 50,000 UNIT in IV NORMAL SALINE 1000ML BAG 1,000 ML IRR ONE; +DOCU-109 PO; -HYDROmorphone 2 MG/ML VIAL IV PRN; -IV RINGERS,LACTATED 1000ML 1,000 ML IV SCH; -MORPHINE SULFATE 2 MG/ML VIAL. IV PRN; +MULT-245 PO; -ONDANSETRON PF 4 MG/2 ML VIAL. IV PRN; +OXYC-325 PO; -OXYC-411 PO; +OXYC1TAB20 PO; -PROCHLORPERAZINE 10 MG/2 ML VIAL. IV PRN; -fentaNYL PF VIAL 100 MCG/2 ML VIAL IV PRN
--- NOTE | 2020-08-27 17:10 | KCIC ---
EXAM: Chest, 2 views. HISTORY: Chronic cough. COMPARISON: None. FINDINGS: 2 views of the chest are obtained. There is no infiltrate, pleural effusion or pneumothorax . The heart is stable in size. There are scattered calcified pulmonary nodules due to healed granulom atous disease. No convincing noncalcified nodule is seen. There is evidence of prior median sternotom y and aortic valve replacement. There are chronic appearing interstitial changes. IMPRESSION: 1. Chronic appearing interstitial changes. 2. No acute pulmonary finding. Electronically signed by: Whitley Sweet MD (08/27/2020 5:08 PM) [facility]
== END ==
LOC: KCIC 11:05
PROVIDERS: ATTEND Family Medicine
DX: R05 Cough (principal)
CPT/HCPCS: 71046

== ENCOUNTER → 2021-01-12 | Outpatient (CLI) | payer MEDICARE, OTHER ==
--- NOTE | 2021-01-12 16:50 | CARD ---
MR#: [id number] Date of Study: 01/12/2021 Ordering Physician: NAV BYRNES, Referring Physician: NAV BYRNES, Tech: Kristy Perry [facility] APPROVED REPORT EXAM: Two-dimensional and M-mode echocardiogram with Doppler and color Doppler. Other Information Quality : AverageHR: 64bpm Rhythm : NSR INDICATION Aortic Valve Disease RISK FACTORS Hypertension Obesity Hyperlipidemia 2D DIMENSIONS RVDd4.7 (2.9-3.5cm)Left Atrium(2D)4.1 (1.6-4.0cm) IVSd1.7 (0.7-1.1cm)Aortic Root(2D)3.1 (2.0-3.7cm) LVDd3.5 (3.9-5.9cm)LVOT Diameter2.3 (1.8-2.4cm) PWd1.6 (0.7-1.1cm)LVDs2.6 (2.5-4.0cm) FS (%) 26.2 %SV26.3 ml LVEF(%)52.5 (>50%) Aortic Valve AoV Peak Moreno.267.7cm/sAoV VTI59.8cm AO Peak GR.28.7mmHgLVOT Peak Moreno.109.7cm/s AO Mean GR.12mmHgAVA (VMAX)1.70cm2 Mitral Valve MV E Gfaxxhoa515.2cm/sMV DECEL XJXB292gr MV A Ratbngvw196.7cm/sE/A Ratio0.8 Pulmonary Valve PV Peak Zahjujee384.5cm/s Pulmonary Vein S1 Yjvebhfa19.1cm/sD2 Foygnzll97.0cm/s PVa [id number] LEFT VENTRICLE The left ventricle is normal size. There is mild to moderate concentric left ventricular hypertrophy. The left ventricular systolic function is normal and the ejection fraction is within normal range. E stimated ejection fraction 55-60%. Septal motion consistent with prior CABG. Otherwise, there is norm al LV segmental wall motion. Transmitral Doppler flow pattern is Grade I-abnormal relaxation pattern. RIGHT VENTRICLE The right ventricle is normal size. There is normal right ventricular wall thickness. The right ventr icular systolic function is normal. ATRIA The left atrium size is normal. The right atrium size is normal. The interatrial septum is intact wit h no evidence for an atrial septal defect or patent foramen ovale as noted on 2-D or Doppler imaging. AORTIC VALVE Doppler and Color Flow revealed mild aortic regurgitation. Probable paravalvular regurgitant jet. The re is no significant aortic valvular stenosis. There is a bioprosthetic aortic valve prosthesis. MITRAL VALVE The mitral valve is normal in structure and function. There is no evidence of mitral valve prolapse. There is no mitral valve stenosis. Doppler and Color-flow revealed mild mitral regurgitation. TRICUSPID VALVE The tricuspid valve is normal in structure and function. Doppler and Color Flow revealed no tricuspid valve regurgitation noted. There is no tricuspid valve stenosis. PULMONIC VALVE Doppler and Color Flow revealed no pulmonic valvular regurgitation. There is no pulmonic valvular cris nosis. GREAT VESSELS The aortic root is normal in size. The ascending aorta is normal in size. The IVC is normal in size a nd collapses >50% with inspiration. PERICARDIAL EFFUSION There is no evidence of significant pericardial effusion. Critical Notification Critical Value: No <Conclusion> There is mild to moderate concentric left ventricular hypertrophy. The left ventricular systolic function is normal and the ejection fraction is within normal range. E stimated ejection fraction 55-60%. Septal motion consistent with prior CABG. Otherwise, there is normal LV segmental wall motion. There is a bioprosthetic aortic valve prosthesis. Doppler and Color Flow revealed mild aortic regurgi tation. Probable paravalvular regurgitant jet. Signed by : Leonardo Reed, Electronically Approved : 01/12/2021 16:50:08
== END ==
LOC: ECHO 10:03
PROVIDERS: ATTEND Internal Medicine Cardiovascular Disease
DX: I08.0 Rheumatic disorders of both mitral and aortic valves (principal); Z95.2 Presence of prosthetic heart valve
CPT/HCPCS: 93306

== ENCOUNTER → 2021-05-11 | Outpatient (CLI) | payer MEDICARE, OTHER ==
--- NOTE | 2021-05-12 10:48 | RAD ---
US RIGHT LOWER EXTREMITY ARTERIAL DUPLEX EVAL Indication: Reason: Diabetic; Peripheral vascular disease; Lower Extrem Bypass Graft / Spl. Instructi ons: / History: Comparison: None. Procedure: Real-time grayscale, color flow Doppler, and Doppler spectral waveform analysis of the art erial system of the lower extremity is performed. Findings: Right lower extremity: Severe atheromatous plaque. Collateral vessels noted. Popliteal to peroneal by pass graft appears patent. No significant velocity elevation. No occlusion. Monophasic waveforms with in the distal right lower extremity. IMPRESSION: 1. Patent right lower extremity bypass graft. 2. Severe atheromatous plaque. Electronically signed by: Dario Arteaga DO (05/12/2021 10:46 AM) [id number]
--- NOTE | 2021-05-12 10:51 | RAD ---
US DPLX CAROTID BILAT History: Reason: Carotid Stenosis asymptomatic bilaterally; LT hand numbness per pt / Spl. Instructio ns: / History: COMPARISON: None Technique: Duplex sonography of the cervical portion of both carotid arteries was performed. Real-eric e grayscale, color flow Doppler, and Doppler spectral waveform analysis is performed. PQRS Compliance Statement - Stenosis calculations for CT, MR and conventional angiography are based u parveen measurement of the distal ICA diameter in accordance with the NASCET methodology. Stenosis calcu lations for carotid ultrasound studies are derived from validated velocity criteria which are known t o correlate with the NASCET methodology. Findings: Right side: Peak systolic flow velocity of the CCA is 87 cm/sec. Peak systolic flow velocity of the ICA is 117 cm/sec. The ICA/CCA ratio is 1.3. Peak end diastolic flow velocity of the ICA is 21 cm/sec. The peak systolic velocity of the ECA is 199 cm/sec. Severe atheromatous plaque. Left side: Peak systolic flow velocity of the CCA is 98 cm/sec. Peak systolic flow velocity of the ICA is 174 cm/sec. The ICA/CCA ratio is 1.8. Peak end diastolic flow velocity of the ICA is 30 cm/sec. Peak systolic flow velocity of the ECA is 291 cm/sec. Severe atheromatous plaque. Vertebral arteries: Bilateral vertebral arteries demonstrate antegrade flow. IMPRESSION: 1. Elevated velocity within the left internal carotid artery, may indicate 50-69 percent stenosis. 2. Severe atheromatous plaque. 3. Elevated velocity within the bilateral external carotid arteries, may indicate stenosis. Electronically signed by: Dario Arteaga DO (05/12/2021 10:49 AM) [id number]
== END ==
LOC: US 14:19
PROVIDERS: ATTEND Registered Nurse Medical-Surgical
DX: I65.23 Occlusion and stenosis of bilateral carotid arteries (principal); I70.201 Unspecified atherosclerosis of native arteries of extremities, right leg; E13.51 Other specified diabetes mellitus with diabetic peripheral angiopathy without gangrene; Z95.820 Peripheral vascular angioplasty status with implants and grafts
CPT/HCPCS: 93880; 93926

== ENCOUNTER → 2021-09-12 | Outpatient (CLI) | payer MEDICARE, OTHER ==
[~2021-09-12] MED LIST changes: +GLIM2TAB7 PO; +SIMV20TA18 PO
--- NOTE | 2021-09-12 10:27 | PDOC1 ---
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 Patient reports pain is tingling and numbness in the back rating to bilateral lower extremities mostly the posterior gluteus and posterior thighs became in the anterior thighs with walking standing as well. Patient reports si gnificant fatigability the bilateral lower extremities but without complete motor loss. Patient is using a cane in his right hand patient reports it generally is better with sitting or lying down does not generally wake him from sleep at night does not affect his bowel bladder control but does affect his go to walk significantly patient has had epidural injections in the distant past also with physical therapy in the past which was helpful and exercising stretching with history and currently which is helpful but nothing recently with physical therapy or other treatments patient reports pain is worse with walking standing better with sitting or lying down and sitting during interview today has no pain. Patient reports once he stands up within 4 to 5 minutes of standing or walking the pain increases to the point where he must sit down after about a 15 to 20-minute period at the most. Patient rates his disability rating 0-10 10 being the worst is a 5 with a house [place] and social activity 10 with recreation and social behavior 8 with occupation 0 self-care or life support activities. Patient have an MRI scan lumbar spine which we reviewed with him today as well showing postsurgical changes at multiple levels L1-L2 3 and L3-4 with a high-grade neuroforaminal stenosis of the left L3 and bilateral L4-5 levels moderate neuroforaminal stenosis at L1-L2 3 and L3-4 as well. Patient reports no loss of motor function but significant fatigability as noted. Patient reports no bowel or bladder incontinence. PAST MEDICAL HISTORY: PMH: Hypertension, arthritis, esophageal reflux, mitral valve replacement, type 2 d iabetes, anemia, hearing loss. PREVIOUS SURGERIES: Past Surgical Hx: Lumbar laminectomy and discectomy most recently 2019, peripheral vascular bypass iliac arteries, popliteal arteries cataract extractions, knee surgery 2016 CURRENT MEDICATIONS: Current Meds: Active Scripts Medications Dose Route/Sig Max Daily Dose Days Date Category Hydrochlorothiazide Capsule (Hydrochlorothiazide) 12.5 Mg Capsule 12.5 Mg PO DAILY 09/12/21 Reported Glimepiride 2 Mg Tablet 1 Tab PO DAILY 09/12/21 Reported Simvastatin 20 Mg Tablet 1 Tab PO QHS 09/12/21 Reported Multi Vitamin Daily (Multivitamin) 1 Each Tablet 1 Tab PO DAILY 30 07/24/19 Reported Potassium Chloride (Potassium Chloride) 20 Meq Tablet.er 20 Meq PO DAILY 10/25/17 Reported Metformin Hcl 1,000 Mg Tablet 1,000 Mg PO BIDWMEALS 09/20/17 Reported Clopidogrel (Clopidogrel Bisulfate) 75 Mg Tablet 1 Tab PO DAILY 09/20/17 Reported Losartan-Hctz 100-12.5 Mg Tab (Losartan/Hydrochlorothiazide) 1 Each Tablet 1 Tab PO DAILY 11/11/14 Reported Doxazosin Mesylate 4 Mg Tablet 1 Tab PO DAILY 11/11/14 Reported ALLERGIES; Allergies: Coded Allergies: No Known Drug Allergies (Unverified , 07/24/19) FAMILY HISTORY: Family Hx: Diabetes, heart disease SOCIAL HISTORY: Social Hx: Patient is nondrug alcohol does not smoke says illegal licit recreational drugs is lives with his spouse is currently retired. REVIEW OF SYSTEMS: ROS: Positive for those items mentioned in history of present illness, all systems are reviewed, otherwise negative ,and are complete full and well-documented on patient's chart. PHYSICAL EXAM: VS: Blood pressure is 175/55 pulse 75 respirations 18 temperature 98.2 F height is 5 feet 7 inches weight is 177 pounds. PE: PHYSICAL EXAMINATION: GENERAL: The patient is awake, alert, oriented, appropriate, very pleasant in demeanor HEENT: Shows normocephalic, atraumatic. Extraocular movements are intact and symmetrical. Oral cavity: Mucous membranes moist and pink. NECK: Shows anterior throat supple without palpable lymphadenopathy noted. Swallow reflex symmetrical. CHEST: Shows normal on inspection. Breath sounds are clear bilaterally, distant and coarse but no rales rhonchi wheezes auscultated. HEART: Shows S1, S2 clear. No murmurs auscultated. ABDOMEN: Soft, nontender, nondistended. No palpable organomegaly is noted. BACK: Shows spine grossly in the midline. Normal-appearing cervical lordotic curvature. There is mildly increased thoracic kyphosis, some flattening of the lumbar lordotic curvature. Lumbar paraspinous muscles show symmetrical on inspection, on palpation shows some moderate tenderness diffusely throughout the upper, middle and lower distribution of the paraspinous muscles bilaterally and also into the lower thoracic paraspinous musculature, firm and tender, but without specific trigger points, without radiation of pain. The patient has good rotational motion of the lumbar spine, both laterally as well as extension and flexion without significant difficulty. No tenderness over the spinous processes, sacrum or sacroiliac regions. EXTREMITIES: Lower extremities show deep tendon reflexes 1+ in the patellar and tendo calcaneus tendons. Motor exam is 4 on a scale of 5 with right dorsiflexion, extension, quadriceps and hamstring flexion and 4/5 on the left. Peripheral pulses are 1 posterior tibial. No peripheral edema is noted castro aterally. Lower extremities are warm and dry to touch, equal in color and appearance. Straight leg raise noted to be positive on the right about 40 degrees, left side is negative. Gaenslen's and Baljeet's maneuvers are negative bilaterally. The patient is able to stand, stand on his toes without significant difficulty or loss of balance walks with a slight favoring gait does appear to favor the right lower extremity over the left and is using a cane in his right hand to ambulate. SKIN: Shows warm and dry, good turgor. No edema. No sores, rashes or bruising throughout. IMPRESSION: Impression: 81-year-old male with approximate 2-year history of pain low back bilateral lower extremities right greater than left in radicular fashion MRI scan lumbar spine as noted Arthritis Peripheral vascular disease Hypertension Type 2 diabetes Plan: Options were discussed with patient with nuclear med management physical therapies and interventional techniques. Patient would like to pursue interventional techniques we will first check with his primary care physician to hold his Plavix for 5 to 7 days prior to interventional technique of lumbar epidural steroid injection. If deemed safe and appropriate patient return to clinic and we will proceed. Meantime, patient will continue with stretching strength exercises as well as walking daily, and oral analgesics, as tolerated. RAISA GARCÍA MD Sep 12, 2021 10:27
== END | disposition home or self-care (01) ==
LOC: PNCL 08:55
PROVIDERS: ATTEND Anesthesiology
DX: M54.50 Low back pain, unspecified (principal); M79.605 Pain in left leg; M79.604 Pain in right leg; I10 Essential (primary) hypertension; K21.9 Gastro-esophageal reflux disease without esophagitis; E11.9 Type 2 diabetes mellitus without complications; I25.10 Atherosclerotic heart disease of native coronary artery without angina pectoris; E78.00 Pure hypercholesterolemia, unspecified; M19.90 Unspecified osteoarthritis, unspecified site; N40.0 Benign prostatic hyperplasia without lower urinary tract symptoms; Z85.828 Personal history of other malignant neoplasm of skin; Z79.899 Other long term (current) drug therapy; Z98.890 Other specified postprocedural states; Z79.84 Long term (current) use of oral hypoglycemic drugs; Z87.891 Personal history of nicotine dependence
CPT/HCPCS: 99214; G0463

== ENCOUNTER → 2021-09-27 | Outpatient (CLI) | payer MEDICARE, OTHER ==
[~2021-09-27] MED LIST changes: +DEXAMETHASONE PRES.FREE 10 MG/ML VIAL. ONE; +IOHEXOL 180 MG/ML 10 ML VIAL. ONE
--- NOTE | 2021-09-27 12:41 | PDOC ---
Progress Note - Pain Clinic Date of Service: DOS: DATE: 09/27/21 TIME: 12:39 Diagnosis: Dx: Lumbar radiculopathy with lumbar degenerative disease lumbar spinal stenosis and lumbar postlaminectomy syndrome History or Present Illness: HPI: 81-year-old male returns for follow-up status post initial evaluation and clearance to hold his Plavix eating office for 7 days now with pain still in the low back and the bilateral lower extremities patient reports is worse with walking standing changing positions wakes him from sleep about every 4-5 hours patient reports no loss of motor function but significant pain in the low back rating to bilateral lower extremities mostly the posterior gluteus lateral thighs anterior thighs patient reports a 5 on scale 10 is worst 5 on average 1 to [place]asman is a 5 today patient report is aching and dull in the low back itself as well as radiating shooting in the lower extremities which is aching can be constant severe and radiating. Patient reports no bowel or bladder incontinence no loss of motor function but significant fatigability of both lower extremities with ambulation or standing more than about 10 to 15 minutes. Physical Exam: VS: Blood pressure is 184/69 pulse 70 respirations 16 temperature 90.2 F height is 5 foot 7 inches weight is 179 pounds. PE: PHYSICAL EXAMINATION: GENERAL: The patient is awake, alert, oriented, appropriate, very pleasant in demeanor HEENT: Shows normocephalic, atraumatic. Extraocular movements are intact and symmetrical. Oral cavity: Mucous membranes moist and pink. NECK: Shows anterior throat supple without palpable lymphadenopathy noted. Swallow reflex symmetrical. CHEST: Shows normal on inspection. Breath sounds are clear bilaterally. HEART: Shows S1, S2 clear. No murmurs auscultated. ABDOMEN: Soft, nontender, nondistended. No palpable organomegaly is noted. BACK: Shows spine grossly in the midline. Normal-appearing cervical lordotic curvature. There is slightly increased thoracic kyphosis, some minor flattening of the lumbar lordotic curvature. Lumbar paraspinous muscles show symmetrical on inspection, on palpation shows some moderate tenderness diffusely throughout the upper, middle and lower distribution of the paraspinous muscles, without specific trigger points, without radiation of pain. The patient has good rotational motion of the lumbar spine, both laterally as well as extension and flexion without significant difficulty. EXTREMITIES: Lower extremities show deep tendon reflexes 1+ in the patellar and tendo calcaneus tendons. Motor exam is 4 on a scale of 5 with right dorsiflexion, extension, quadriceps and hamstring flexion and 4/5 on the left. Peripheral pulses are 1+ posterior tibial. No peripheral edema is noted bilaterally. Lower extremities are warm and dry to touch, equal in color and appearance. SKIN: Shows warm and dry, good turgor. No edema. No sores, rashes or bruising throughout. Procedure: Procedure: Options discussed with patient. Patient's chart reviews his current medication regimen updated current review of systems updated today as well. We will proceed with a lumbar epidural steroid injection today with fluoroscopic guidance. Risks were discussed including but not limited to: Bleeding, infection, possibility of epidural hematoma and subsequent neurological compromise, dural puncture, headaches, spinal cord and/or nerve damage, side effects of steroid medication, and poor results regarding pain control. Patient understands and wished to proceed. Patient will return to clinic in approximate 2 weeks for follow-up, was counseled as to return appointment, activity level, and side effects to be aware of. Medication Injected: Med Injected: Procedure is lumbar epidural steroid injection under local anesthetic using sterile prep and drape at the L4-5 level using C-arm fluoroscopic guidance in both AP and lateral views medications injected is 120 mg methylprednisolone +10mL preservative-free normal saline and 2 mL contrast- condition at discharge is stable patient tolerated procedure well had no complications. Condition at Discharge: Condition at Discharge: Condition at discharge stable, paced tolerated procedure well and had no com plications. RAISA GARCÍA MD Sep 27, 2021 12:41
--- NOTE | 2021-09-27 12:42 | PDOC4 ---
Procedure Note: ICD 10 Code: ICD 10 Code: M54.16 M51.36 M48.06 M96.1 Procedure Note: Patient was consented for lumbar epidural steroid injection fluoroscopic guidance. Risks were discussed including but not limited to: Bleeding, infection, possibility of epidural hematoma and subsequent neurological compromise, dural puncture, headaches, spinal cord and/or nerve damage, side effects of steroid medication, and poor results regarding pain control. Patient understands and wished to proceed. Procedure is lumbar epidural steroid injection under local anesthetic using cris rile prep and drape at the L4-5 level using C-arm fluoroscopic guidance in both AP and lateral views medications injected is 120 mg methylprednisolone +10mL preservative-free normal saline and 2 mL contrast- condition at discharge is stable patient tolerated procedure well had no complications. RAISA GARCÍA MD Sep 27, 2021 12:42
== END | disposition home or self-care (01) ==
LOC: PNCL 11:28
PROVIDERS: ATTEND Anesthesiology
DX: M51.16 Intervertebral disc disorders with radiculopathy, lumbar region (principal); M48.061 Spinal stenosis, lumbar region without neurogenic claudication; M96.1 Postlaminectomy syndrome, not elsewhere classified; I25.10 Atherosclerotic heart disease of native coronary artery without angina pectoris; I10 Essential (primary) hypertension; E78.00 Pure hypercholesterolemia, unspecified; E11.9 Type 2 diabetes mellitus without complications; K21.9 Gastro-esophageal reflux disease without esophagitis; M19.90 Unspecified osteoarthritis, unspecified site; Z85.828 Personal history of other malignant neoplasm of skin; Z87.891 Personal history of nicotine dependence; Z79.899 Other long term (current) drug therapy; Z98.890 Other specified postprocedural states
CPT/HCPCS: 62323; J1100; Q9965

== ENCOUNTER → 2021-10-18 | Outpatient (CLI) | payer MEDICARE, OTHER ==
--- NOTE | 2021-10-18 08:47 | PDOC4 ---
Procedure Note: ICD 10 Code: ICD 10 Code: M54.16 M51.36 M48.06 M96.1 Procedure Note: Patient is consented for lumbar epidural steroid injection with fluoroscopic guidance. Risks were discussed including but not limited to: Bleeding, infection, possibility of epidural hematoma and subsequent neurological compromise, dural puncture, headaches, spinal cord and/or nerve damage, side effects of steroid medication, and poor results regarding pain control. Patient understands and wished to proceed. Procedure is lumbar epidural steroid injection under local anesthetic using sterile prep and drape at the L4-5 level using C-arm fluoroscopic guidance in both AP and lateral views medications injected is 20 mg dexamethasone +10mL preservative-free normal saline and 2 mL contrast- condition at discharge is stable patient tolerated procedure well had no complications. RAISA GARCÍA MD October 18, 2021 08:47
--- NOTE | 2021-10-18 08:47 | PDOC ---
Progress Note - Pain Clinic Date of Service: DOS: DATE: 10/18/21 TIME: 08:43 Diagnosis: Dx: Radiculopathy with lumbar degenerative disease lumbar spinal stenosis lumbar postlaminectomy syndrome History or Present Illness: HPI: 81-year-old male returns for follow-up status post lumbar epidural steroid injection September 27, 2021 patient reports he did very well with about a 25% improvement overall with the pain in his lower extremity and legs his pain is changed now he reports is mostly only in the right leg radiating posterior gluteus posterior lateral thigh lateral anterior thigh anteromedial thigh medial lower leg and right foot much more severe than left side left side is doing quite a bit better but his main complaint is now right-sided pain which primarily had been bilaterally previously. Patient reports his pain is an 8 on scale 10 is worse over the past week 3 on average 1 its least and is a 3 today. Patient reports no loss of motor function no bowel or bladder incontinence but significant increase in pain with walking standing on his right leg better with sitting or laying down but wakes him from sleep very rarely patient reports occasionally will he lays on his right side however over the past week or so prior to that patient was doing much better distance walking doing household activities felt like his legs were stronger he was try with greater ease and comfort as well is sleeping better at night. Patient reports the pain is now tingling and burning the back aching and sore radiating the right lower extremity as described. Patient reports no bowel or bladder function. Physical Exam: VS: Blood pressure is 120/70 pulse 76 respirations 18 temperature 98.3 F height is 5 feet 7 inches weight is 175 pounds. PE: PHYSICAL EXAMINATION: GENERAL: The patient is awake, alert, oriented, appropriate, very pleasant in demeanor HEENT: Shows normocephalic, atraumatic. Extraocular movements are intact and symmetrical. Oral cavity: Mucous membranes moist and pink. NECK: Shows anterior throat supple without palpable lymphadenopathy noted. Swallow reflex symmetrical. CHEST: Shows normal on inspection. Breath sounds are clear bilaterally. HEART: Shows S1, S2 clear. No murmurs auscultated. ABDOMEN: Soft, nontender, nondistended. No palpable organomegaly is noted. No rebound or guarding demonstrated. BACK: Shows spine grossly in the midline. Normal-appearing cervical lordotic curvature. There is mildly increased thoracic kyphosis, some flattening of the lumbar lordotic curvature, with well-healed surgical scarring. Lumbar paraspinous muscles show symmetrical on inspection, on palpation shows some mod erate tenderness diffusely throughout the upper, middle and lower distribution of the paraspinous muscles, but without specific trigger points, without radiation of pain. The patient has good rotational motion of the lumbar spine, both laterally as well as extension and flexion without significant difficulty. EXTREMITIES: Lower extremities show deep tendon reflexes 1+ in the patellar and tendo calcaneus tendons. Motor exam is 4 on a scale of 5 with right dorsiflexion, extension, quadriceps and hamstring flexion and 4/5 on the left. Peripheral pulses are 1+ posterior tibial. No peripheral edema is noted bilaterally. Lower extremities are warm and dry to touch, equal in color and appearance. SKIN: Shows warm and dry, good turgor. No edema. No sores, rashes or bruising throughout. Procedure: Procedure: Options discussed with patient. Patient's old chart was reviewed and his current medication regimen updated, and review of systems updated today as well. We will proceed with a lumbar epidural steroid injection today with fluoroscopic guidance. Risks were discussed including but not limited to: Bleeding, infection, possibility of epidural hematoma and subsequent neurological compromise, dural puncture, headaches, spinal cord and/or nerve damage, side effects of steroid medication, and poor results regarding pain control. Patient understands and wished to proceed. Patient will return to the clinic in approximately 2 weeks for follow-up, was counseled as to return appoin tment, activity level, and side effect to be aware of. Medication Injected: Med Injected: Procedure is lumbar epidural steroid injection under local anesthetic using sterile prep and drape at the L4-5 level using C-arm fluoroscopic guidance in both AP and lateral views medications injected is 20 mg dexamethasone +10mL preservative-free normal saline and 2 mL contrast- condition at discharge is stable patient tolerated procedure well had no complications. Condition at Discharge: Condition at Discharge: Condition at discharge stable, paced tolerated procedure well and had no complications. RAISA GARCÍA MD October 18, 2021 08:47
== END | disposition home or self-care (01) ==
LOC: PNCL 07:54
PROVIDERS: ATTEND Anesthesiology
DX: M51.16 Intervertebral disc disorders with radiculopathy, lumbar region (principal); M48.061 Spinal stenosis, lumbar region without neurogenic claudication; M96.1 Postlaminectomy syndrome, not elsewhere classified; I10 Essential (primary) hypertension; E78.00 Pure hypercholesterolemia, unspecified; E11.9 Type 2 diabetes mellitus without complications; K21.9 Gastro-esophageal reflux disease without esophagitis; M19.90 Unspecified osteoarthritis, unspecified site; I25.10 Atherosclerotic heart disease of native coronary artery without angina pectoris; Z85.828 Personal history of other malignant neoplasm of skin; Z79.84 Long term (current) use of oral hypoglycemic drugs; Z79.899 Other long term (current) drug therapy; Z98.890 Other specified postprocedural states
CPT/HCPCS: 62323; J1100; Q9965

== ENCOUNTER → 2021-11-08 | Outpatient (CLI) | payer MEDICARE, OTHER ==
--- NOTE | 2021-11-08 11:01 | PDOC ---
Progress Note - Pain Clinic Date of Service: DOS: DATE: 11/08/21 TIME: 10:58 Diagnosis: Dx: Lumbar radiculopathy with lumbar degenerative disc disease lumbar spinal stenosis and lumbar postlaminectomy syndrome History or Present Illness: HPI: 81-year-old male returns for follow-up status post lumbar epidural steroid injection x2. Patient reports did very well [place] 30% improvement overall leg is a bit stronger now on the right side as well patient reports he is having some spasms in the back now after his last injection he not had previously but is better with heat application and stretching. Patient reports his pain is a 9 on scale 10 is worse over the past week for an average 3 to [place]asman is a 4 today patient [place] is aching and tingling in the back radiating shooting the right lower extremity posterior gluteus lateral thigh anterior thigh medial thigh also and some in the posterior calf on the right side as well patient reports spasms in the back are tight and stabbing noticeable more when he is walking or standing but also with prolonged sitting greater than about an hour patient reports no loss of motor function no bowel or bladder incontinence. Physical Exam: VS: Blood pressure is 189/69 pulse 76 respirations 18 temperature 98.7 F height is 5 foot 7 inches weight is 175 pounds. PE: PHYSICAL EXAMINATION: GENERAL: The patient is awake, alert, oriented, appropriate, very pleasant in demeanor HEENT: Shows normocephalic, atraumatic. Extraocular movements are intact and symmetrical. NECK: Shows anterior throat supple without palpable lymphadenopathy noted. Swallow reflex symmetrical. CHEST: Shows normal on inspection. Breath sounds are clear bilaterally, distant but no rales or rhonchi auscultated. HEART: Shows S1, S2 clear. No murmurs auscultated. ABDOMEN: Soft, nontender, nondistended. No palpable organomegaly is noted. BACK: Shows spine grossly in the midline. Normal-appearing cervical lordotic curvature. There is slightly increased thoracic kyphosis, some flattening of the lumbar lordotic curvature with well-healed surgical scarring again noted. Lumbar paraspinous muscles show symmetrical on inspection, on palpation shows some moderate tenderness diffusely throughout the upper, middle and lower distribution of the paraspinous muscles without specific trigger points, without radiation of pain. The patient has good rotational motion of the lumbar spine, both laterally as well as extension and flexion without significant difficulty. EXTREMITIES: Lower extremities show deep tendon reflexes 1+ in the patellar and tendo calcaneus tendons. Motor exam is 4 on a scale of 5 with right do rsiflexion, extension, quadriceps and hamstring flexion and 4/5 on the left. Peripheral pulses are 1+ posterior tibial. No peripheral edema is noted bilaterally. Lower extremities are warm and dry. SKIN: Shows warm and dry, good turgor. No edema. No sores, rashes or bruising throughout. Procedure: Procedure: Options were discussed with the patient. Patient's old chart was reviewed his current medication regimen updated current review of systems updated today as well. We will proceed with a lumbar epidural steroid injection today with fluoroscopic guidance. Risks were discussed including but not limited to: Bleeding, infection, possibility of epidural hematoma and subsequent neurological compromise, dural puncture, headaches, spinal cord and/or nerve damage, side effects of steroid medication, and poor results regarding pain control. Patient understands and wished to proceed. Patient will return to the clinic in approximately 2 weeks for follow-up, was counseled as to return appointment, activity level and side effects to be aware of. Medication Injected: Med Injected: Procedure is lumbar epidural steroid injection under local anesthetic using sterile prep and drape at the L4-5 level using C-arm fluoroscopic guidance in both AP and lateral views medications injected is 20 mg dexamethasone +10mL preservative-free normal saline and 2 mL contrast- condition at discharge is stable patient tolerated procedure well had no complications. Condition at Discharge: Condition at Discharge: Condition at discharge stable, patient tolerated the procedure well had no complications. RAISA GARCÍA MD November 08, 2021 11:01
--- NOTE | 2021-11-08 11:02 | PDOC4 ---
Procedure Note: ICD 10 Code: ICD 10 Code: M54.16 M51.36 M48.06 M96.1 Procedure Note: Patient was consented for lumbar epidural steroid injection with fluoroscopic guidance. Risks were discussed including but not limited to: Bleeding, infection, possibility of epidural hematoma and subsequent neurological compromise, dural puncture, headaches, spinal cord and/or nerve damage, side effects of steroid medication, and poor results regarding pain control. Patient understands and wished to proceed. Procedure is lumbar epidural steroid injection under local anesthetic using sterile prep and drape at the L4-5 level using C-arm fluoroscopic guidance in both AP and lateral views medications injected is 20 mg dexamethasone +10mL preservative-free normal saline and 2 mL contrast- condition at discharge is stable patient tolerated procedure well had no complications. RAISA GARCÍA MD November 08, 2021 11:02
== END | disposition home or self-care (01) ==
LOC: PNCL 09:49
PROVIDERS: ATTEND Anesthesiology
DX: M51.16 Intervertebral disc disorders with radiculopathy, lumbar region (principal); M48.061 Spinal stenosis, lumbar region without neurogenic claudication; M96.1 Postlaminectomy syndrome, not elsewhere classified; I25.10 Atherosclerotic heart disease of native coronary artery without angina pectoris; I10 Essential (primary) hypertension; E78.00 Pure hypercholesterolemia, unspecified; K21.9 Gastro-esophageal reflux disease without esophagitis; M19.90 Unspecified osteoarthritis, unspecified site; E11.9 Type 2 diabetes mellitus without complications; Z85.828 Personal history of other malignant neoplasm of skin; Z79.899 Other long term (current) drug therapy; Z98.890 Other specified postprocedural states; Z87.891 Personal history of nicotine dependence; Z79.84 Long term (current) use of oral hypoglycemic drugs
CPT/HCPCS: 62323; J1100; Q9965